=== PATIENT | female | born 1985 | race African-American/Black ===

== ENCOUNTER 2020-03-05 12:34 | Inpatient (IN) | payer OTHER, MEDICAID ==
[~2020-03-05] VITALS: Ht 172.7 cm; Wt 51.0 kg
[2020-03-05] MEDS ORDERED: MORPHINE SULFATE 4 MG/ML CPJ (NOT FOR IM USE) IV STA (13:44)
[2020-03-05] MEDS ORDERED: ONDANSETRON HCL 4MG/2ML INJ IV STA (13:44)
[2020-03-05] MEDS ORDERED: SODIUM CHLORIDE 0.9% 1,000 ML IV ONE (13:44)
[2020-03-05 14:22] LABS: BASOPHILS % 0.7 % (0.0-2.0); EOSINOPHILS % 0.2 % (0.0-5.0); HEMATOCRIT. 35.7 % (36.0-48.0); HEMOGLOBIN. 11.6 g/dL (12.0-16.0); LYMPHOCYTES % 32.6 % (20.0-50.0); MEAN CORPUSCULAR VOLUME 92.4 fL (81.0-99.0); MEAN PLATELET VOLUME 8.7 fl (7.4-10.4); MONOCYTES % 8.1 % (2.0-8.0); NEUTROPHILS % 58.4 % (40.0-76.0); PLATELET 253 x1000/uL (130-400); RED BLOOD CELL COUNT 3.86 mill/uL (4.2-5.4); RED CELL DISTRIBUTION WIDTH 19.8 % (11.6-14.6)
[2020-03-05 14:25] LABS: CHLORIDE 106 mEq/L (98-107); INR 1.3; PROTHROMBIN TIME 13.8 sec (9.6-11.0)
[2020-03-05 14:28] LABS: ETHANOL BLOOD < 10 mg/dL
[2020-03-05 14:29] LABS: HCG SCREEN NEGATIVE
[2020-03-05 14:33] LABS: LDL CHOLESTEROL 50 mg/dL (5-100)
[2020-03-05 14:36] LABS: CLARITY URINE CLEAR (CLEAR); COLOR URINE YELLOW (YELLOW); KETONES URINE NEGATIVE (NEGATIVE); LEUKOCYTE ESTERASE URINE 2+ (NEGATIVE); NITRITE URINE NEGATIVE (NEGATIVE); OCCULT BLOOD URINE NEGATIVE (NEGATIVE); PROTEIN URINE 1+ (NEGATIVE); SPECIFIC GRAVITY URINE 1.011 (1.005-1.030)
[2020-03-05 14:53] LABS: *AMPHETAMINES SCREEN URINE NEGATIVE (NEGATIVE); *BARBITURATES SCREEN URINE NEGATIVE (NEGATIVE); *BENZODIAZEPINES SCREEN URINE NEGATIVE (NEGATIVE); *COCAINE SCREEN URINE NEGATIVE (NEGATIVE); CANNABINOID URINE SCREEN NEGATIVE (NEGATIVE); METHADONE URINE SCREEN NEGATIVE (NEGATIVE); OPIATES URINE SCREEN NEGATIVE (NEGATIVE); PHENCYCLIDINE URINE SCREEN NEGATIVE (NEGATIVE)
[2020-03-05] MEDS ORDERED: FUROSEMIDE 40MG/4ML VIAL IV ONE (15:15)
[2020-03-05] MEDS ORDERED: CEFTRIAXONE 1 G PREMIX 50 ML IV ONE (15:15)
[2020-03-05] MEDS ORDERED: ASPIRIN 81MG TABLET PO ONE (15:15)
[2020-03-05] MEDS ORDERED: NITROGLYCERIN OINT 1GM/INCH UDPKT TD ONE (15:15)
[2020-03-05] MEDS ORDERED: ONDANSETRON HCL 4MG/2ML INJ IV PRN (16:45)
[2020-03-05] MEDS: ACETAMINOPHEN 325MG TABLET PO PRN (17:11)
[2020-03-05] MEDS: HYDROCODONE/ACETAMINOPHEN 10/325MG TABLET PO PRN (18:59)
[2020-03-05 20:38] VITALS: BP 139/87
[2020-03-05] MEDS: ENOXAPARIN 40MG/0.4ML SYR SUBCUT SCH (21:25)
[2020-03-05 22:00] VITALS: BP 139/87
[2020-03-06] VITALS (12 sets, daily range): BP systolic 113–144; BP diastolic 59–98
[2020-03-06] MEDS: HYDROCODONE/ACETAMINOPHEN 10/325MG TABLET PO PRN ×2 (00:48→07:58)
[2020-03-06 06:25] LABS: CHLORIDE 105 mEq/L (98-107)
[2020-03-06] MEDS: FUROSEMIDE 40MG/4ML VIAL IVP SCH ×2 (07:58→17:39)
[2020-03-06] MEDS: CEFTRIAXONE 1 G PREMIX 50 ML IV SCH (12:47)
[2020-03-06] MEDS ORDERED: IOHEXOL-350 100 ML BOTTLE ONE (16:42)
[2020-03-06] MEDS: ASPIRIN 81MG TABLET PO SCH (17:39)
[2020-03-06] MEDS ORDERED: CARV6.2548 MT (19:45)
[2020-03-06] MEDS ORDERED: FURO20TA4 MT (19:45)
[2020-03-06] MEDS ORDERED: LOSA25TA26 MT (19:45)
[2020-03-06] MEDS ORDERED: OXYC-93 PO (19:45)
[2020-03-06] MEDS: ZOLPIDEM TARTRATE 5MG TABLET PO PRN (20:25)
[2020-03-06] MEDS: ENOXAPARIN 40MG/0.4ML SYR SUBCUT SCH (20:27)
[2020-03-06] MEDS: CARVEDILOL 3.125 MG TABLET PO SCH (20:27)
[2020-03-07] VITALS (12 sets, daily range): BP systolic 111–142; BP diastolic 36–97
[2020-03-07 06:17] LABS: CHLORIDE 99 mEq/L (98-107)
[2020-03-07] MEDS: ASPIRIN 81MG TABLET PO SCH (07:27)
[2020-03-07] MEDS: FUROSEMIDE 40MG/4ML VIAL IVP SCH ×3 (07:27→17:29)
[2020-03-07] MEDS: CARVEDILOL 3.125 MG TABLET PO SCH (07:27)
[2020-03-07] MEDS: CEFTRIAXONE 1,000 MG in DEXTROSE 5% WATER 50 ML IV SCH (11:47)
[2020-03-07] MEDS: CEFTRIAXONE 1 G PREMIX 50 ML IV SCH (11:49)
[2020-03-07] MEDS ORDERED: MORPHINE SULFATE 2 MG/ML CPJ (NOT FOR IM USE) IV SCH (12:00)
[2020-03-07] MEDS: LOSARTAN POTASSIUM 25 MG TABLET PO SCH (12:32)
[2020-03-07] MEDS ORDERED: CARVEDILOL 6.25 MG TABLET PO SCH (21:00)
[2020-03-07] MEDS: MORPHINE SULFATE 2 MG/ML CPJ (NOT FOR IM USE) IV PRN (21:02)
[2020-03-07] MEDS: ENOXAPARIN 40MG/0.4ML SYR SUBCUT SCH (21:10)
[2020-03-07] MEDS: ZOLPIDEM TARTRATE 5MG TABLET PO PRN (21:10)
[2020-03-07] MEDS: CARVEDILOL 6.25 MG TABLET PO SCH (21:32)
[2020-03-08] VITALS (8 sets, daily range): BP systolic 93–114; BP diastolic 65–81
[2020-03-08] MEDS: MORPHINE SULFATE 2 MG/ML CPJ (NOT FOR IM USE) IV PRN ×4 (03:49→20:27)
[2020-03-08 07:11] LABS: BASOPHILS % 0.9 % (0.0-2.0); EOSINOPHILS % 0.6 % (0.0-5.0); HEMATOCRIT. 41.1 % (36.0-48.0); HEMOGLOBIN. 13.3 g/dL (12.0-16.0); LYMPHOCYTES % 32.8 % (20.0-50.0); MEAN CORPUSCULAR HEMOGLOBIN 29.5 pg (28.0-32.0); MEAN CORPUSCULAR VOLUME 91.2 fL (81.0-99.0); MEAN PLATELET VOLUME 8.6 fl (7.4-10.4); MONOCYTES % 11.7 % (2.0-8.0); PLATELET 283 x1000/uL (130-400); RED CELL DISTRIBUTION WIDTH 18.4 % (11.6-14.6)
[2020-03-08 07:22] LABS: CHLORIDE 98 mEq/L (98-107)
[2020-03-08] MEDS: CARVEDILOL 6.25 MG TABLET PO SCH ×2 (08:28→20:25)
[2020-03-08] MEDS: ASPIRIN 81MG TABLET PO SCH (08:28)
[2020-03-08] MEDS: LOSARTAN POTASSIUM 25 MG TABLET PO SCH (08:28)
[2020-03-08] MEDS ORDERED: FURO-151 MT (10:56)
[2020-03-08] MEDS ORDERED: LIDOCAINE HCL/PF 1% 2ML VIAL ONE (11:21)
[2020-03-08 13:12] LABS: BG BASE EXCESS 5.1 mmol/L (-2.0-2.0); BG CARBOXYHEMOGLOBIN 1.1 % (0.5-1.5); BG DEOXYHEMOGLOBIN 3.8 % (0.0-5.0); BG FRACTION INSPIRED OXYGEN 21; BG HCO3 ACT 30.2 mmol/L (22.0-26.0); BG METHEMOGLOBIN 0.3 % (0.0-1.5); BG OXYGEN SATURATION 96.1 % (92.0-98.5); BG OXYHEMOGLOBIN 94.8 % (94.0-97.0); BG PCO2 46.5 mmHg (35.0-45.0); BG PH 7.431 (7.350-7.450); BG PO2 83.1 mmHg (75.0-100.0); BG SAMPLE SITE RIGHT BRACHIAL; BG TOTAL HEMOGLOBIN 13.7 g/dL (12.0-18.0); BG VENT MODE ROOM AIR
[2020-03-08] MEDS: CEFTRIAXONE 1,000 MG in DEXTROSE 5% WATER 50 ML IV SCH (13:58)
[2020-03-08] MEDS: FUROSEMIDE 40MG/4ML VIAL IVP SCH (17:39)
[2020-03-08] MEDS: ENOXAPARIN 40MG/0.4ML SYR SUBCUT SCH (20:25)
[2020-03-09] VITALS (10 sets, daily range): BP systolic 92–113; BP diastolic 66–79
[2020-03-09] MEDS: MORPHINE SULFATE 2 MG/ML CPJ (NOT FOR IM USE) IV PRN ×4 (00:47→17:04)
[2020-03-09] MEDS: FUROSEMIDE 40MG/4ML VIAL IVP SCH ×2 (08:21→17:17)
[2020-03-09] MEDS: ASPIRIN 81MG TABLET PO SCH (08:22)
[2020-03-09] MEDS: LOSARTAN POTASSIUM 25 MG TABLET PO SCH (08:29)
[2020-03-09] MEDS: CARVEDILOL 6.25 MG TABLET PO SCH ×2 (08:29→20:02)
[2020-03-09] MEDS: ACETAMINOPHEN 325MG TABLET PO PRN (11:04)
[2020-03-09] MEDS: CEFTRIAXONE 1,000 MG in DEXTROSE 5% WATER 50 ML IV SCH ×2 (11:59→12:17)
[2020-03-09] MEDS ORDERED: OXYC-515 MT (13:19)
[2020-03-09] MEDS: ENOXAPARIN 40MG/0.4ML SYR SUBCUT SCH (20:02)
== END 2020-03-09 22:01 | disposition home or self-care (01) | DRG 291 ==
LOC: ER 12:34 → 3WST 15:29 → EDBEDREQ 15:38 → EDBEDREQSVC 15:38 → ENRESERV 19:31
PROVIDERS: ADMIT Internal Medicine; ATTEND Internal Medicine
DX: I11.0 Hypertensive heart disease with heart failure (principal); J18.9 Pneumonia, unspecified organism; E43 Unspecified severe protein-calorie malnutrition; J96.01 Acute respiratory failure with hypoxia; G45.9 Transient cerebral ischemic attack, unspecified; I31.3 Pericardial effusion (noninflammatory); J91.8 Pleural effusion in other conditions classified elsewhere; N39.0 Urinary tract infection, site not specified; Z68.1 Body mass index [BMI] 19.9 or less, adult; I50.41 Acute combined systolic (congestive) and diastolic (congestive) heart failure; I27.20 Pulmonary hypertension, unspecified; I42.9 Cardiomyopathy, unspecified; D64.9 Anemia, unspecified; I07.1 Rheumatic tricuspid insufficiency; Z90.710 Acquired absence of both cervix and uterus
CPT/HCPCS: 36415; 36600; 70496; 70498; 70551; 71045; 71275; 74176; 78582; 80048; 80053; 80061; 80305; 80320; 81003; 82375; 82805; 83721; 83735; 83880; 84145; 84443; 84484; 84703; 85025; 87077; 87186; 93005; 93306; 93970; 94618; 96365; 97161; 97166; 99291; A9558; J0696; J1650; J1940; J2270; J2405; J3490; J7030; J7060; Q9967; G0480